=== PATIENT | male | born 1995 ===

== ENCOUNTER 2016-12-18 12:30 | Emergency (ER) | payer MEDICARE, MEDICAID ==
--- NOTE | ~2016-12-18 | ER ---
PATIENT'S NAME: ZENAIDA IVORY [facility] AGE: 21 Y [address] ROOM: [place] [id number] LOCATION: [facility] ADMIT DATE: 12/18/2016 ER/Outpatient Report DISCHARGE DATE: 12/18/2016 FAMILY PHYSICIAN: Yash Kim MD ATTENDING PHYSICIAN: Ilana Maki Time of Arrival: 1230 hours. Time of Evaluation: 1245 hours. CHIEF COMPLAINT: Left thumb laceration. HISTORY OF PRESENT ILLNESS: This is a 21-year-old male presents to the ER who states he punctured his thumb with a boxing trainer. He states that this occurred just prior to arrival. He states he has full range of motion of his finger. He states it did bleed quite a bit prior to arrival, but he got the bleeding under control, but he states he is not up to date on his tetanus shot. He denies any other injury at this time. ALLERGIES: NO KNOWN ALLERGIES. MEDICATIONS: Please see medication list in nurse's notes. PAST MEDICAL HISTORY: Seizures. PAST SURGERIES: None. SOCIAL HISTORY: Denies smoking, drug, or alcohol use. REVIEW OF SYSTEMS: CONSTITUTIONAL: Denies any change in weight or fatigue. MUSCULOSKELETAL: No weakness or myalgias. HEMATOLOGIC: No easy bruising or bleeding. SKIN: Has puncture to the left thumb. PHYSICAL EXAMINATION: VITAL SIGNS: Height 5 feet 8 inches stated, weight 79.4 kg taken, blood pressure is 134/93, pulse 80, respirations 18, temperature 98.6 degrees tympanically, saturations 97% on room air. Charity Coma Score is 15. PATIENT'S NAME: ZENAIDA IVORY [facility] AGE: 21 Y [address] ROOM: [place] [address] LOCATION: [facility] ADMIT DATE: 12/18/2016 ER/Outpatient Report DISCHARGE DATE: 12/18/2016 FAMILY PHYSICIAN: Yash Kim MD ATTENDING PHYSICIAN: Ilana Maki GENERAL: Alert, calm, well-developed, 21-year-old, in no acute distress. EXTREMITIES: No clubbing, cyanosis, or edema. Has full range of motion of all limbs. SKIN: He has a superficial cut just beneath the cuticle on his left thumb, it is not actively bleeding at this time. LABORATORY DATA AND X-RAYS: None were done. IMPRESSION: Less than 0.5 cm superficial laceration to left thumb. ASSESSMENT AND PLAN: We did cleanse the area with normal saline. I did lay some Dermabond skin glue over the area to protect it. We did update him on his tetanus shot as well. The patient did tolerate this well. We will send him home with a skin glue handout. He may take Tylenol as needed and follow up with primary care physician if needed. The patient and patient's father understand and agree with care. TONNY HENDRIX PA-C FOR MD DEDRICK NEIL/nanci /[id number] d: 12/18/16 1517 t: 12/21/161941, OUTPATIENT REPORT
== END 2016-12-18 12:58 | disposition disaster alternative care site (69) ==
LOC: GACC 12:30
PROC: 0HQGXZZ Repair Left Hand Skin, External Approach (ICD-10-PCS; principal; 2016-12-18)
DX: S61.012A Laceration without foreign body of left thumb without damage to nail, initial encounter (principal); Z23 Encounter for immunization; W26.8XXA Contact with other sharp object(s), not elsewhere classified, initial encounter